=== PATIENT | female | born 1995 | race Hispanic/Latino ===

== ENCOUNTER 2019-11-27 06:49 | Emergency (ER) | payer SELFPAY ==
[2019-11-27 07:39] VITALS: BP 126/85
--- NOTE | 2019-11-27 08:10 | Emergency Department Report ---
ED General Adult HPI - General Chief complaint: Upper Respiratory Infection Stated complaint: RIGHT SIDE PAIN, DIFFICULTY IN BREATHING Time Seen by Provider: 11/27/19 07:54 Source: patient Mode of arrival: Ambulatory Limitations: No Limitations - History of Present Illness Initial comments: 24-year-old female presents to the emergency room complaining of right upper quadrant abdominal pain for 1 week. Patient states in the last 2 days is gotten worse. She does admit to nausea and vomiting. She states that when she takes a deep breath she has pain in her right upper quadrant. Patient denies any diarrhea no fever no chills. Patient was recently released out of senior care. She reports no past medical history currently takes no medications on a daily basis and has an allergy to codeine. Onset/Timin -: week(s) Location: abdomen Severity scale (0 -10): 9 Consistency: intermittent Improves with: none Worsens with: movement Associated Symptoms: nausea/vomiting, shortness of breath. denies: cough, diaphoresis, fever/chills, headaches Treatments Prior to Arrival: none - Related Data Allergies Allergy/AdvReac Type Severity Reaction Status Date / Time codeine Allergy Unknown Verified 11/27/19 07:04 ED Review of Systems ROS: Stated complaint: RIGHT SIDE PAIN, DIFFICULTY IN BREATHING Other details as noted in HPI Comment: All other systems reviewed and negative Gastrointestinal: abdominal pain, nausea, vomiting. denies: diarrhea, constipation, hematemesis ED Past Medical Hx - Past Medical History Previous Medical History?: Yes - Surgical History Past Surgical History?: No ED Physical Exam - General Limitations: No Limitations General appearance: alert, in no apparent distress - Head Head exam: Present: atraumatic, normocephalic - Eye Eye exam: Present: normal appearance - ENT ENT exam: Present: mucous membranes moist - Neck Neck exam: Present: normal inspection, full ROM - Respiratory Respiratory exam: Present: normal lung sounds bilaterally. Absent: respiratory distress - Cardiovascular Cardiovascular Exam: Present: regular rate, normal rhythm. Absent: systolic murmur, diastolic murmur, rubs, gallop - GI/Abdominal GI/Abdominal exam: Present: soft, tenderness (Right upper quadrant), normal bowel sounds. Absent: distended - Back Exam Back exam: Present: full ROM - Neurological Exam Neurological exam: Present: alert, oriented X3, normal gait - Psychiatric Psychiatric exam: Present: normal affect, normal mood - Skin Skin exam: Present: warm, dry, intact, normal color. Absent: rash ED Course Vital Signs 11/27/19 07:38 Temperature 97.6 F Pulse Rate 83 Respiratory 18 Rate Blood Pressure 126/85 [Right] O2 Sat by Pulse 97 Oximetry - Reevaluation(s) Reevaluation #1: 11/27/19 10:38 Discussed case with who recommends EKG and d-dimer. ED Medical Decision Making - Lab Data Laboratory Tests 11/27/19 11/27/19 11/27/19 08:35 08:38 08:38 WBC 7.1 RBC 4.30 Hgb 14.2 Hct 39.8 MCV 93 MCH 33 H MCHC 36 H RDW 14.3 Plt Count 198 Lymph % (Auto) 26.9 [place] % (Auto) 9.4 H Eos % (Auto) 1.7 Baso % (Auto) 0.3 Lymph # 1.9 [place] # 0.7 Eos # 0.1 Baso # 0.0 Seg Neutrophils % 61.7 Seg Neutrophils # 4.4 Sodium 139 Potassium 4.4 Chloride 105.1 Carbon Dioxide 26 Anion Gap 12 BUN 7 Creatinine 0.8 Estimated GFR > 60 BUN/Creatinine Ratio 9 Glucose 104 H Calcium 8.9 Total Bilirubin 0.20 AST 18 ALT 19 Alkaline Phosphatase 55 Total Protein 5.7 L Albumin 3.8 L Albumin/Globulin Ratio 2.0 Lipase 129 H Urine Color Yellow Urine Turbidity Clear Urine pH 8.0 H Ur Specific [place] 1.013 Urine Protein <15 mg/dl Urine Glucose (UA) Neg Urine Ketones Neg Urine Blood Neg Urine Nitrite Neg Urine Bilirubin Neg Urine Urobilinogen < 2.0 Ur Leukocyte Esterase Neg Urine WBC (Auto) < 1.0 Urine RBC (Auto) 1.0 U Epithel Cells (Auto) 1.0 Urine HCG, Qual Negative - Radiology Data Radiology results: report reviewed [facility] [address] [place] [address] Cat Scan Report Signed Patient: GLENYS JUÁREZ MR#: [id number] [birth year] : 1995 Acct:[id number] Age/Sex: 24 / F ADM Date: 11/27/19 Loc: ED Attending Dr: Ordering Physician: ASA NEWBERRY Date of Service: 11/27/19 Procedure(s): CT abdomen pelvis w con Accession Number(s): [id number] cc: MARIA M [place] [facility] ABDOMEN AND PELVIS WITH CONTRAST HISTORY: Right upper quadrant pain and tenderness. COMPARISON: None TECHNIQUE: Routine abdominal and pelvic CT exam performed following intravenous contrast administration. Patient received 100 mL IV Omnipaque 300. All CT scans at this location are performed using CT dose reduction for ALARA by means of automated exposure control. FINDINGS: CT ABDOMEN: Lung Bases: Calcified granuloma in the left lower lobe. Liver: No significant abnormality. Biliary: Gallbladder is surgically absent. Spleen: Multiple calcified granulomas. Pancreas: No significant abnormality. Adrenals: No significant abnormality. Kidneys: No significant abnormality. Lymphatics: No lymphadenopathy. Vasculature: No significant abnormality. Bowel/Peritoneum: No significant abnormality. No free air. No free fluid. Normal appendix. CT PELVIC: : Small amount of free fluid in the pelvis, likely physiologic. Approximately 3 cm left ovarian cyst. Lymphatics: No lymphadenopathy. Osseous Structures: No aggressive appearing osseous lesions. Additional Findings: None IMPRESSION: 1. No acute findings. 2. Small amount of free fluid in the pelvis with physiologic left ovarian cyst. Signer Name: Connor Palacios MD Signed: 11/27/2019 9:59 AM Workstation Name: [id number] Transcribed By: LILA Dictated By: Connor Palacios MD Electronically Authenticated By: Connor Palacios MD Signed Date/Time: 11/27/19958 DD/ 6 TD/TT: - Medical Decision Making 24-year-old female presents to the emergency room complaining of right upper quadrant abdominal pain for 1 week. Patient states in the last 2 days is gotten worse. She does admit to nausea and vomiting. She states that when she takes a deep breath she has pain in her right upper quadrant. Patient denies any diarrhea no fever no chills. Patient was recently released out of senior care. She reports no past medical history currently takes no medications on a daily basis and has an allergy to codeine. CBC CMP lipase which is elevated. D-dimer which is [address] abdomen and pelvis negative for any acute findings. Urinalysis is negative UDS is positive for marijuana/cannabis. EKG ordered but patient refused. She stormed out with her IV in her arm. Critical care attestation.: If time is entered above; I have spent that time in minutes in the direct care of this critically ill patient, excluding procedure time. ED Disposition Clinical Impression: Abdominal pain, Cannabis hyperemesis syndrome concurrent with and due to cannabis abuse Disposition: Z-07 ELOPED Is pt being admited?: No Does the pt Need Aspirin: No Condition: Undetermined Instructions: Acute Abdominal Pain (ED) Additional Instructions: CT scan is negative for any acute abnormalities. Urinalysis is within normal limits labs are stable. I would like for you to follow-up with a search engine optimization analyst I have listed their information below as well as a primary care provider. You can take Tylenol or ibuprofen for pain management. Increase your water intake. Referrals: PRIMARY CAREMD [Primary Care Provider] - 3-5 Days [facility] [Provider Group] - 3-5 Days [facility] [Provider Group] - 3-5 Days
[2019-11-27 08:49] LABS: Basophils % (Auto) 0.3 % (0.0-1.8); Eosinophils # (Auto) 0.1 K/mm3 (0.0-0.4); Eosinophils % (Auto) 1.7 % (0.0-4.3); Hematocrit 39.8 % (30.3-42.9); Hemoglobin 14.2 gm/dl (10.1-14.3); Lymphocytes # (Auto) 1.9 K/mm3 (1.2-5.4); Lymphocytes % (Auto) 26.9 % (13.4-35.0); Mean Corpuscular HGB Conc 36 % (30-34); Mean Corpuscular Volume 93 fl (79-97); Monocytes # (Auto) 0.7 K/mm3 (0.0-0.8); Monocytes % (Auto) 9.4 % (0.0-7.3); Platelet Count 198 K/mm3 (140-440); Red Cell Distribution Width 14.3 % (13.2-15.2)
[2019-11-27 09:02] LABS: Bilirubin,Urine NEG (Negative); Blood,Urine NEG (Negative); Color,Urine Yellow (Yellow); Protein,Urine <15 mg/dL mg/dL (Negative); Urobilinogen,Urine < 2.0 mg/dL (<2.0); WBC,Urine < 1.0 /HPF (0.0-6.0)
[2019-11-27 09:08] LABS: HCG Qualitative,Urine Negative (Negative)
[2019-11-27 09:13] LABS: Alanine Aminotransferase 19 units/L (7-56); Albumin 3.8 g/dL (3.9-5); BUN/Creatinine Ratio 9; Blood Urea Nitrogen 7 mg/dL (7-17); Calcium 8.9 mg/dL (8.4-10.2); Hemolysis Index 37
--- NOTE | 2019-11-27 10:03 | Cat Scan Report ---
CT ABDOMEN AND PELVIS WITH CONTRAST HISTORY: Right upper quadrant pain and tenderness. COMPARISON: None TECHNIQUE: Routine abdominal and pelvic CT exam performed following intravenous contrast administrat ion. Patient received 100 mL IV Omnipaque 300. All CT scans at this location are performed using CT d ose reduction for ALARA by means of automated exposure control. FINDINGS: CT ABDOMEN: Lung Bases: Calcified granuloma in the left lower lobe. Liver: No significant abnormality. Biliary: Gallbladder is surgically absent. Spleen: Multiple calcified granulomas. Pancreas: No significant abnormality. Adrenals: No significant abnormality. Kidneys: No significant abnormality. Lymphatics: No lymphadenopathy. Vasculature: No significant abnormality. Bowel/Peritoneum: No significant abnormality. No free air. No free fluid. Normal appendix. CT PELVIC: : Small amount of free fluid in the pelvis, likely physiologic. Approximately 3 cm left ovarian cys t. Lymphatics: No lymphadenopathy. Osseous Structures: No aggressive appearing osseous lesions. Additional Findings: None IMPRESSION: 1. No acute findings. 2. Small amount of free fluid in the pelvis with physiologic left ovarian cyst. Signer Name: Connor Palacios MD Signed: 11/27/2019 9:59 AM Workstation Name: [id number]
[2019-11-27 10:58] LABS: Amphetamine Screen,Urine Negative; Benzodiazepines Screen,Urine Negative; Cocaine Screen,Urine Negative; Methadone Screen,Urine Negative; Opiate Screen,Urine Negative
[2019-11-27 11:42] LABS: Cannabinoid Screen,Urine Positive
== END 2019-11-27 12:17 | disposition left against medical advice (07) ==
LOC: ED 06:49
DX: R60.0 Localized edema (principal); Z53.21 Procedure and treatment not carried out due to patient leaving prior to being seen by health care provider
CPT/HCPCS: 36415; 74177; 80053; 80307; 81001; 81025; 83690; 85025; 85379; Q9967

== ENCOUNTER 2021-10-08 12:56 | Emergency (ER) | payer SELFPAY ==
[2021-10-08 14:21] VITALS: BP 105/70
[2021-10-08 19:20] LABS: Bilirubin,Urine NEG (Negative); Blood,Urine NEG (Negative); Color,Urine Yellow (Yellow); Protein,Urine <15 mg/dL mg/dL (Negative); Urobilinogen,Urine < 2.0 mg/dL (<2.0)
[2021-10-08 19:24] LABS: Bacteria,Urine 1+ /HPF (Negative); Mucus,Urine 1+ /HPF
[2021-10-08 19:26] LABS: HCG Qualitative,Urine Negative (Negative)
== END 2021-10-08 19:00 | disposition left against medical advice (07) ==
LOC: ED 12:56
DX: R42 Dizziness and giddiness (principal); R06.02 Shortness of breath; Z53.21 Procedure and treatment not carried out due to patient leaving prior to being seen by health care provider
CPT/HCPCS: 81001; 81025

== ENCOUNTER 2021-11-03 09:04 | Emergency (ER) | payer SELFPAY ==
--- NOTE | 2021-11-03 12:41 | Emergency Department Report ---
ED ENT HPI - General Chief complaint: Upper Respiratory Infection Stated complaint: RT SIDE FACIAL PAIN Time Seen by Provider: 11/03/21 12:31 Source: patient Mode of arrival: Ambulatory Limitations: No Limitations - History of Present Illness Initial comments: 26-year-old white female presents to the emergency department for evaluation of right-sided facial pain, canker sore inside of her mouth, and swelling to the left side of her abdomen. 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 She states that she also has a history of syphilis for which she was treated with penicillin but she thinks that it has come back and that is why she has the sore on the inside of her mouth. She denies fever, nausea, vomiting, and any changes in mentation. MD complaint: other (Congestion and right facial pain) -: Gradual, days(s) Location: other (Right side of face) Severity: mild Severity scale (0 -10): 2 Quality: aching Associated Symptoms: cough, gum swelling, rhinorrhea. denies: fever, toothache, pain with swallowing, sore throat, tinnitus, hearing loss, discharge from ear - Related Data Previous Rx's Medication Instructions Recorded Last Taken Type Amoxicillin/K Clav Tab [Augmentin 1 tab PO Q12HR #14 tab 11/03/21 Unknown Rx 875 mg] Triamcinolone Paste 0.1%(Nf) 5 gm DT QID #1 tube 11/03/21 Unknown Rx [Kenalog in Orabase (Nf)] Allergies Allergy/AdvReac Type Severity Reaction Status Date / Time codeine Allergy Unknown Verified 11/27/19 07:04 ED Dental HPI - General Chief complaint: Upper Respiratory Infection Stated complaint: RT SIDE FACIAL PAIN Time Seen by Provider: 11/03/21 12:31 Source: patient Mode of arrival: Ambulatory Limitations: No Limitations - Related Data Previous Rx's Medication Instructions Recorded Last Taken Type Amoxicillin/K Clav Tab [Augmentin 1 tab PO Q12HR #14 tab 11/03/21 Unknown Rx 875 mg] Triamcinolone Paste 0.1%(Nf) 5 gm DT QID #1 tube 11/03/21 Unknown Rx [Kenalog in Orabase (Nf)] Allergies Allergy/AdvReac Type Severity Reaction Status Date / Time codeine Allergy Unknown Verified 11/27/19 07:04 ED Review of Systems ROS: Stated complaint: RT SIDE FACIAL PAIN Other details as noted in HPI Comment: All other systems reviewed and negative Constitutional: denies: chills, diaphoresis, fever, weakness Eyes: denies: eye pain, eye discharge, vision change ENT: congestion. denies: ear pain, throat pain, dental pain, hearing loss Respiratory: cough. denies: orthopnea, shortness of breath, SOB with exertion, SOB at rest, stridor, wheezing Cardiovascular: denies: chest pain, palpitations, dyspnea on exertion, orthopnea, edema, syncope, paroxysmal nocturnal dyspnea Gastrointestinal: denies: abdominal pain, nausea, vomiting, diarrhea, hematemesis, melena, hematochezia Genitourinary: denies: urgency, dysuria Musculoskeletal: denies: back pain Skin: denies: rash Neurological: denies: headache, weakness, numbness, paresthesias, confusion, abnormal gait, vertigo Hematological/Lymphatic: denies: swollen glands ED Past Medical Hx - Past Medical History Additional medical history: nodules on her thyroid, anemia - Surgical History Hx Cholecystectomy: Yes - Social History Smoking Status: Never Smoker - Medications Home Medications: Home Medications Medication Instructions Recorded Confirmed Last Taken Type Amoxicillin/K Clav Tab [Augmentin 1 tab PO Q12HR #14 tab 11/03/21 Unknown Rx 875 mg] Triamcinolone Paste 0.1%(Nf) 5 gm DT QID #1 tube 11/03/21 Unknown Rx [Kenalog in Orabase (Nf)] ED Physical Exam - General Limitations: No Limitations General appearance: alert, in no apparent distress - Head Head exam: Present: atraumatic, normocephalic, other (Tenderness to bilateral frontal and maxillary sinus areas.) - Eye Eye exam: Present: normal appearance. Absent: scleral icterus, conjunctival injection, periorbital swelling, periorbital tenderness - ENT ENT exam: Present: TM's normal bilaterally. Absent: normal exam (Bilateral rafal al mucosal edema with right greater than left. Right turbinate swelling along with purulent drainage noted), normal orophraynx (Erythema noted to posterior oropharynx) - Expanded ENT Exam Expanded Ear exam: Present: normal external inspection. Absent: auricular trauma Mouth exam: Present: normal external inspection, other (Noted to have canker sore to right upper gum area). Absent: drooling, trismus, muffled voice, tongue normal Teeth exam: Present: normal inspection Throat exam: Negative: tonsillar erythema, tonsillomegaly, tonsillar exudate, R peritonsillar mass, L peritonsillar mass - Neck Neck exam: Present: normal inspection, full ROM. Absent: tenderness, meningismus, lymphadenopathy, thyromegaly - Respiratory Respiratory exam: Present: normal lung sounds bilaterally. Absent: respiratory distress, wheezes, rales, rhonchi, stridor, chest wall tenderness - Cardiovascular Cardiovascular Exam: Present: regular rate, normal heart sounds - GI/Abdominal GI/Abdominal exam: Present: soft, normal bowel sounds, other (No swelling noted to left abdominal area.). Absent: distended, tenderness, guarding, rebound, rigid - Extremities Exam Extremities exam: Present: normal inspection, normal capillary refill. Absent: full ROM, tenderness, pedal edema, joint swelling - Back Exam Back exam: Present: normal inspection. Absent: CVA tenderness (R), CVA tenderness (L), vertebral tenderness - Neurological Exam Neurological exam: Present: alert, oriented X3, CN II-XII intact, normal gait, reflexes normal. Absent: motor sensory deficit - Expanded Neurological Exam Expanded Patient oriented to: Present: person, place, time Speech: Present: fluid speech Cranial nerves: EOM's Intact: Normal, Gag Reflex: Normal, Tongue Deviation: Normal, Facial Sensation: Normal Cerebellar function: Romberg: Normal Sensory exam: Upper Extremity Light Touch: Normal, Upper Extremity Temperature: Normal, Lower Extremity Light Touch: Normal, Lower Extremity Temperature: Normal Motor strength exam: RUE: 5, LUE: 5, RLE: 5, LLE: 5 Best Eye Response (Andrei): (4) open spontaneously Best Motor Response (Andrei): (6) obeys commands Best Verbal Response ([place]): (5) oriented Andrei Total: 15 - Psychiatric Psychiatric exam: Present: normal affect, normal mood - Skin Skin exam: Present: warm, dry, intact, normal color ED Course Vital Signs 11/03/21 11/03/21 09:49 12:40 Temperature 97.8 F 96.8 F L Pulse Rate 90 84 Respiratory 18 16 Rate Blood Pressure 130/80 136/82 [Left] O2 Sat by Pulse 96 100 Oximetry ED Medical Decision Making - Medical Decision Making 26-year-old white female presents to the emergency department for evaluation of right-sided facial pain, canker sore inside of her mouth, and swelling to the left side of her abdomen. 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 She states that she also has a history of syphilis for which she was treated with penicillin but she thinks that it has come back and that is why she has the sore on the inside of her mouth. She denies fever, nausea, vomiting, and any changes in mentation. Physical exam most consistent with sinusitis. Patient demanding and fussing and cussing at the desk and requesting CT scan of her head along with blood draw to evaluate for syphilis. Explained to patient that she did not have any signs of any neurologic impairment based on my assessment nor any symptoms of syphilis. Explained to patient that unless reinfected, syphilis is treated with one-time shot of penicillin. Patient was encouraged to follow-up at the health department if she wanted to be retested for syphilis, and she stated that she did go there but they wanted money so she decided not to have it done there. Patient will be treated for acute bacterial rhinosinusitis with Augmentin along with medication for canker sore in her mouth. She is advised to take medications as prescribed. She was given several resources that would take in account her financial situation so that she could follow-up for further evaluation and management. She was advised to return to the emergency department for any concerning symptoms. Critical care attestation.: If time is entered above; I have spent that time in minutes in the direct care of this critically ill patient, excluding procedure time. ED Disposition Clinical Impression: Canker sores oral, Acute bacterial sinusitis Disposition: HOME / SELF CARE / HOMELESS Is pt being admited?: No Does the pt Need Aspirin: No Condition: Stable Instructions: Antibiotic Medicine, Adult, [id number], Sinusitis, Adult, [id number], Canker Sores Additional Instructions: Take medication as prescribed. Follow-up at [facility] or any one of the provided resources for further evaluation, treatment, and management. Return to the emergency department as needed. Prescriptions: Amoxicillin/K Clav Tab [Augmentin 875 mg] 1 tab PO Q12HR #14 tab Triamcinolone Paste 0.1%(Nf) [Kenalog in Orabase (Nf)] 5 gm DT QID #1 tube Referrals: SOLOMON BYRNE MD [Staff Physician] - 3-5 Days [facility] [Outside] - 3-5 Days [facility] [Outside] - 3-5 Days [facility] [Outside] - 3-5 Days [facility] [Outside] - 3-5 Days [facility] [Outside] - 3-5 Days [facility] [Outside] - 3-5 Days [facility] [Outside] - 3-5 Days [facility] [Outside] - 3-5 Days [facility] [Provider Group] - 3-5 Days Time of Disposition: 12:41
[2021-11-03 13:06] VITALS: BP 136/82
== END 2021-11-03 13:06 | disposition home or self-care (01) ==
LOC: ED 09:04
DX: K12.0 Recurrent oral aphthae (principal); J01.90 Acute sinusitis, unspecified; B96.89 Other specified bacterial agents as the cause of diseases classified elsewhere; Z88.5 Allergy status to narcotic agent; Z79.899 Other long term (current) drug therapy
CPT/HCPCS: 99282